=== PATIENT | male | born 1990 | race Caucasian/White ===

== ENCOUNTER 2016-09-22 08:45 | Inpatient (IN) | payer OTHER ==
[~2016-09-22] VITALS: Ht 188 cm; Wt 110.3 kg
[2016-09-22] VITALS (8 sets, daily range): BP systolic 124; BP diastolic 66; PULSE 80–100; RESP 18; TEMP 98.2; O2SAT 96–99
[2016-09-22] MEDS ORDERED: MORPHINE SULFATE 8 MG/ML INJ ONE (08:54)
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
[2016-09-22 09:10] LABS: AUTOMATED NEUTROPHIL # 12.9 TH/MM3 (1.8-7.7); BASOPHIL # 0.1 TH/MM3 (0-0.2); BASOPHIL % 0.7 % (0.0-2.0); EOSINOPHIL % 0.2 % (0.0-4.0); HEMATOCRIT 44.1 % (39.0-51.0); LYMPH % 27.9 % (9.0-44.0); LYMPHOCYTE # 5.3 TH/MM3 (1.0-4.8); MEAN CELL VOLUME 83.3 FL (80.0-100.0); MEAN CORPUSCULAR HEMOGLOBIN 27.7 PG (27.0-34.0); MEAN CORPUSCULAR HGB CONC 33.2 % (32.0-36.0); MONO % 3.6 % (0.0-8.0); NEUT % 67.6 % (16.0-70.0); PLATELET COUNT 252 TH/MM3 (150-450); RED BLOOD COUNT 5.29 MIL/MM3 (4.50-5.90); RED CELL DISTRIBUTION WIDTH 14.1 % (11.6-17.2); WHITE BLOOD COUNT 19.1 TH/MM3 (4.0-11.0)
[2016-09-22 09:11] LABS: HEMO FLAGS AUTO DIFF
[2016-09-22] MEDS ORDERED: IOHEXOL 350 MG/ML 10 ML VIAL (for RAD DIAG) IV ONE (09:18)
[2016-09-22 09:20] LABS: I-STAT POTASSIUM 4.1 MMOL/L (3.5-4.9); PROTHROMBIN TIME - PATIENT 11.6 SEC (9.8-11.6)
[2016-09-22] MEDS ORDERED: MAGNESIUM SULFATE INJ 2 GM in SODIUM CHLORIDE 0.9% INJ 96 ML IV PRN (09:30)
[2016-09-22] MEDS ORDERED: SODIUM PHOSPHATE INJ 30 MMOL in SODIUM CHLOR 0.9% 250 ML INJ 240 ML IV PRN (09:30)
[2016-09-22] MEDS ORDERED: POTASSIUM CHLOR 40 MEQ PREMIX 100 ML IV PRN ×2 (09:30)
[2016-09-22] MEDS ORDERED: POTASSIUM PHOSPHATE MONOBASIC 500 MG TAB PO/TUBE PRN (09:30)
[2016-09-22] MEDS ORDERED: DEXTROSE 50% IN WATER 50 ML VIAL(D50) IV PUSH PRN (09:30)
[2016-09-22] MEDS ORDERED: POTASSIUM PHOSPHATE INJ 30 MMOL in SODIUM CHLOR 0.9% 250 ML INJ 250 ML IV PRN (09:30)
[2016-09-22] MEDS ORDERED: MAGNESIUM OXIDE 400 MG TAB PO PRN (09:30)
[2016-09-22] MEDS ORDERED: POTASSIUM PHOSPHATE MONOBASIC 500 MG TAB PO PRN (09:30)
[2016-09-22] MEDS ORDERED: MAGNESIUM SULFATE INJ 4 GM in SODIUM CHLORIDE 0.9% INJ 92 ML IV PRN (09:30)
[2016-09-22] MEDS ORDERED: POTASSIUM CHLOR 20 MEQ PREMIX 100 ML IV PRN ×2 (09:30)
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
[2016-09-22 09:42] LABS: MYELOCYTES 1 % (0-0); NEUTROPHIL # MANUAL DIFF 12.4 TH/MM3 (1.8-7.7); POLYS (SEG NEUTROPHILS) 64 % (16-70); WBC DIFF SAMPLE 100
[2016-09-22 09:43] LABS: PLATELET ESTIMATE SMEAR NORMAL (NORMAL); PLATELET MORPHOLOGY NORMAL (NORMAL); SCAN/DIFF FINAL DIFF MANUAL
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
[2016-09-22] MEDS ORDERED: SODIUM CHLOR 0.9% 1000 ML INJ 1,000 ML IV SCH (12:00)
[2016-09-22] MEDS: INSULIN NovoLIN REGULAR SUPPLEMENTAL SCALE SQ SCH ×2 (12:00→18:00)
[2016-09-22] MEDS: HYDROmorphone HCL PF 1 MG/ML VIAL IV PRN ×3 (13:30→21:30)
[2016-09-22] MEDS ORDERED: SODIUM CHLORIDE 0.9% FLUSH 10 ML FLUSH IV FLUSH PRN (16:45)
[2016-09-22] MEDS ORDERED: MISCELLANEOUS NURSING INFORMATION XX SCH (16:45)
[2016-09-22] MEDS ORDERED: ONDANSETRON HCL 4 MG/2 ML VIAL IV PRN (16:45)
[2016-09-22] MEDS ORDERED: ENALAPRILAT 1.25 MG/ML VIAL IV PRN (16:45)
[2016-09-22] MEDS ORDERED: CHLORHEXIDINE GLUCONATE 2 % 1 PACK (2 CLOTHS) TOP PRN (16:45)
[2016-09-22] MEDS: SODIUM CHLOR 0.9% 1000 ML INJ 1,000 ML IV SCH (17:00)
[2016-09-22] MEDS: PANTOPRAZOLE SODIUM 40 MG VIAL IVP SCH (17:15)
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
[2016-09-22] MEDS: DOCUSATE SODIUM 100 MG CAP PO SCH ×2 (21:00→21:29)
[2016-09-22] MEDS: MAGNESIUM HYDROXIDE SUSP 30 ML CUP PO SCH ×2 (21:00→21:29)
[2016-09-23] VITALS (7 sets, daily range): BP systolic 118–128; BP diastolic 62–75; PULSE 55–78; RESP 15; TEMP 98.1–98.2; O2SAT 93–95
[2016-09-23] MEDS: HYDROmorphone HCL PF 1 MG/ML VIAL IV PRN ×6 (01:21→22:32)
[2016-09-23] MEDS: SODIUM CHLOR 0.9% 1000 ML INJ 1,000 ML IV SCH ×2 (04:28→15:00)
[2016-09-23] MEDS: CHLORHEXIDINE GLUCONATE 2 % 1 PACK (2 CLOTHS) TOP SCH (04:29)
[2016-09-23] MEDS: INSULIN NovoLIN REGULAR SUPPLEMENTAL SCALE SQ SCH ×4 (06:00→18:00)
[2016-09-23 06:04] LABS: HEMATOCRIT 36.8 % (39.0-51.0); MEAN CELL VOLUME 82.7 FL (80.0-100.0); MEAN CORPUSCULAR HEMOGLOBIN 27.5 PG (27.0-34.0); MEAN CORPUSCULAR HGB CONC 33.2 % (32.0-36.0); PLATELET COUNT 161 TH/MM3 (150-450); RED BLOOD COUNT 4.44 MIL/MM3 (4.50-5.90); RED CELL DISTRIBUTION WIDTH 13.8 % (11.6-17.2); REVIEW FLAG FINAL; WHITE BLOOD COUNT 12.6 TH/MM3 (4.0-11.0)
[2016-09-23 06:31] LABS: BICARBONATE 27.2 MEQ/L (21.0-32.0); POTASSIUM 3.6 MEQ/L (3.5-5.1)
--- NOTE | 2016-09-23 07:39 | PD.ORT.PN ---
Subjective Subjective Remarks Patient appears comfortable. C/o soreness to left shoulder. Family member present at bedside. Objective Vitals Vital Signs Date Time Temp Pulse Resp B/P Pulse Ox O2 Delivery O2 Flow Rate FiO2 09/23/16 06:00 60 09/23/16 06:00 66 09/23/16 04:00 65 09/23/16 02:00 72 09/23/16 00:00 78 09/22/16 22:38 99 Nasal Cannula 2.00 09/22/16 22:00 91 09/22/16 20:00 88 09/22/16 20:00 98.2 88 18 124/66 96 09/22/16 19:00 96 Nasal Cannula 2.00 09/22/16 18:00 92 09/22/16 17:46 14 09/22/16 16:00 97 09/22/16 14:00 94 09/22/16 12:00 100 09/22/16 10:00 80 I/O 09/22/16 09/22/16 09/22/16 09/23/16 09/23/16 09/23/16 07:00 15:00 23:00 07:00 15:00 23:00 Intake Total 174 ml 936 ml 625 ml Output Total 950 ml 650 ml Balance 174 ml -14 ml -25 ml Intake Oral 0 ml 0 ml IV Total 174 ml 936 ml 625 ml Output Urine Total 950 ml 650 ml # Voids 0 # Bowel Movements 0 0 Result Diagram: 09/23/16 0550 09/23/16 0550 Other Results Laboratory Tests Test 09/22/16 08:50 Prothrombin Time 11.6 SEC (9.8-11.6) Prothromb Time International 1.0 RATIO Ratio Imaging Last [address] 09/22/16901 Signed Impressions: Service Date/Time: Thursday, September 22, 2016 09:04 - CONCLUSION: 1. No acute intracranial abnormality seen. 2. Small hypodensity in the left midbrain potentially represent a lacunar infarct or other etiologies such as a cavernous angioma. Eduardo Chand MD Chest CT 09/22/16901 Signed Impressions: Service Date/Time: Thursday, September 22, 2016 09:10 - CONCLUSION: 1. Contusions as described above, worse on the left than the right. 2. Left clavicle fracture mid shaft. 3. Tiny left pneumothorax. Joon Bean MD FACR Cervical Spine CT 09/22/16901 Signed Impressions: Service Date/Time: Thursday, September 22, 2016 09:04 - CONCLUSION: 1. Comminuted, nondisplaced fracture of the dens. No bony retropulsion identified. Romeo Bean MD Abdomen/Pelvis CT 09/22/16901 Signed Impressions: Service Date/Time: Thursday, September 22, 2016 09:10 - CONCLUSION: 1. There is no evidence for a solid organ injury. 2. Small corner fracture anterior superior right hand corner of L3. Lumbar spine reconstructions are pending. Joon Bean MD FACR Pelvis X-Ray 09/22/16848 Signed Impressions: Service Date/Time: Thursday, September 22, 2016 08:59 - CONCLUSION: No definite acute abnormality is seen. Eduardo Chand MD Chest X-Ray 09/22/16848 Signed Impressions: Service Date/Time: Thursday, September 22, 2016 08:59 - CONCLUSION: Suspected area of consolidation, contusion or atelectasis at the lateral left mid and lower lung. Eduardo Chand MD Objective Remarks Left clavicle skin intact small area of ecchymosis and swelling noted 2+ radial pulses +sensation good movement of digits good tribal judge strength sling in place Assessment & Plan Problem List: (1) Fracture, clavicle closed, shaft Plan: X-rays were reviewed and the case was discussed with nurse practitioner Tia. Recommend proceeding with nonoperative fracture care. We will continue to follow patient. Ultimately he will follow up in the office as outpatient. Assessment and Plan Pain management Continue using sling. Apply ice Non-operative management at this time. Monitor Alvarez Weber Sep 23, 2016 07:39
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
[2016-09-23] MEDS: DOCUSATE SODIUM 100 MG CAP PO SCH ×2 (09:00→21:02)
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
--- NOTE | 2016-09-23 09:47 | RADRPT ---
EXAM DATE/TIME: 09/23/2016 09:28 [facility] COMPARISON: CT THORAX W CONTRAST, September 22, 2016, 9:10. PELVIS AP ONLY, September 22, 2016, 8:59. INDICATIONS : Follow up rib fracture and pneumothorax. MEDICAL HISTORY : rib fractures SURGICAL HISTORY : ENCOUNTER: Initial ACUITY: 1 day PAIN SCORE: 0/10 LOCATION: Bilateral chest FINDINGS: The heart is normal in size. There is a small left basilar effusion. There are atelectatic changes in the left lower lobe. There is minimal fluid tracking along the left lung apex. No significant pneumo thorax is identified. No definite rib fracture is identified. CONCLUSION: 1. Left basilar effusion and atelectasis. There is a small amount of little on the left lung apex as well. No significant pneumothorax is seen. Romeo Bean MD on September 23, 2016 at 9:42 Board Certified Radiologist. This report was verified electronically.
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
[2016-09-23] MEDS: PANTOPRAZOLE SODIUM 40 MG VIAL IVP SCH (16:28)
[2016-09-23] MEDS: MAGNESIUM HYDROXIDE SUSP 30 ML CUP PO SCH (21:02)
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
[2016-09-24] VITALS (12 sets, daily range): BP systolic 117–142; BP diastolic 55–82; PULSE 51–103; RESP 12–27; TEMP 97.8–100.1; O2SAT 91–100
[2016-09-24] MEDS: HYDROmorphone HCL PF 1 MG/ML VIAL IV PRN ×3 (03:47→11:53)
[2016-09-24] MEDS: CHLORHEXIDINE GLUCONATE 2 % 1 PACK (2 CLOTHS) TOP SCH (04:00)
[2016-09-24 04:18] LABS: AUTOMATED NEUTROPHIL # 9.2 TH/MM3 (1.8-7.7); BASOPHIL % 0.2 % (0.0-2.0); EOSINOPHIL # 0.2 TH/MM3 (0-0.4); EOSINOPHIL % 1.3 % (0.0-4.0); HEMATOCRIT 35.6 % (39.0-51.0); HEMO FLAGS DIFF FINAL; LYMPH % 11.6 % (9.0-44.0); LYMPHOCYTE # 1.3 TH/MM3 (1.0-4.8); MEAN CELL VOLUME 82.1 FL (80.0-100.0); MEAN CORPUSCULAR HEMOGLOBIN 27.7 PG (27.0-34.0); MEAN CORPUSCULAR HGB CONC 33.8 % (32.0-36.0); MONO % 6.8 % (0.0-8.0); NEUT % 80.1 % (16.0-70.0); PLATELET COUNT 154 TH/MM3 (150-450); RED BLOOD COUNT 4.33 MIL/MM3 (4.50-5.90); RED CELL DISTRIBUTION WIDTH 13.6 % (11.6-17.2); WHITE BLOOD COUNT 11.5 TH/MM3 (4.0-11.0)
[2016-09-24 04:33] LABS: ANION GAP 6 MEQ/L (5-15); AST (GOT) 83 U/L (15-37); BICARBONATE 28.6 MEQ/L (21.0-32.0); BLOOD UREA NITROGEN 8 MG/DL (7-18); CHLORIDE 103 MEQ/L (98-107); MAGNESIUM 2.2 MG/DL (1.5-2.5); POTASSIUM 3.8 MEQ/L (3.5-5.1); SODIUM (NA) 138 MEQ/L (136-145)
[2016-09-24 04:36] LABS: ALKALINE PHOSPHATASE 54 U/L (45-117); ALT (GPT) 218 U/L (12-78); GLOMERULAR FILTRATION RATE 145 ML/MIN (>89); TOTAL BILIRUBIN ADULT 0.8 MG/DL (0.2-1.0)
--- NOTE | 2016-09-24 05:41 | RADRPT ---
EXAM DATE/TIME: 09/24/2016 04:07 [facility] COMPARISON: CHEST SINGLE AP, September 23, 2016, 9:28. INDICATIONS : Shortness of breath. MEDICAL HISTORY : None. SURGICAL HISTORY : None. ENCOUNTER: Subsequent ACUITY: 3 days PAIN SCORE: Non-responsive. LOCATION: Bilateral chest FINDINGS: Mild basilar consolidation again noted, mainly on the left. No perceptible pleural effusion or pneumo thorax. Heart size stable, within normal limits. CONCLUSION: No significant change mild left greater than right basilar consolidation. Eduardo Dave MD on September 24, 2016 at 5:38 Board Certified Radiologist. This report was verified electronically.
[2016-09-24] MEDS: INSULIN NovoLIN REGULAR SUPPLEMENTAL SCALE SQ SCH ×4 (06:00→18:00)
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
[2016-09-24] MEDS: DOCUSATE SODIUM 100 MG CAP PO SCH ×2 (08:09→20:14)
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
[2016-09-24] MEDS: SODIUM CHLOR 0.9% 1000 ML INJ 1,000 ML IV SCH (11:55)
[2016-09-24] MEDS ORDERED: LIDOCAINE 1%/EPINEPHrine 1:100,000 SOLN 50 ML VIAL INFIL SCH (12:15)
[2016-09-24] MEDS ORDERED: MORPHINE SULFATE 8 MG/ML INJ IV PUSH SCH (12:15)
[2016-09-24] MEDS ORDERED: MIDAZOLAM HCL 5 MG/5 ML VIAL IV SCH (12:30)
[2016-09-24] MEDS ORDERED: ACETAMINOPHEN 325 MG TAB PO PRN (15:30)
[2016-09-24] MEDS: BENZOCAINE 6 MG/MENTHOL 10 MG LOZENGE BUCCAL PRN (17:18)
[2016-09-24] MEDS: KETOROLAC TROMETHAMINE 30 MG/ML (IVP) VIAL IV PUSH SCH (17:18)
--- NOTE | 2016-09-24 18:38 | RADRPT ---
EXAM DATE/TIME: 09/24/2016 17:58 [facility] COMPARISON: CT THORAX W CONTRAST, September 22, 2016, 9:10. CHEST SINGLE AP, September 24, 2016, 4:07. INDICATIONS : Shortness of breath MEDICAL HISTORY : None. SURGICAL HISTORY : None. ENCOUNTER: Initial ACUITY: 1 day PAIN SCORE: 0/10 LOCATION: Bilateral chest FINDINGS: Portable AP view of the chest demonstrates a normal-sized cardiac silhouette. There is left basilar p leural-parenchymal opacity obscuring the left hemidiaphragm. There is also opacity at the right base obscuring the right hemidiaphragm. No pneumothorax is visualized. Bones and soft tissues demonstrate no acute finding. CONCLUSION: Increased bibasilar opacities likely representing a atelectasis and/or consolidation. Small pleural e ffusion may also be present. Eduardo Alcantara MD on September 24, 2016 at 18:34 Board Certified Radiologist. This report was verified electronically.
[2016-09-24] MEDS ORDERED: MELATONIN 5 MG TAB PO ONE (19:30)
[2016-09-24] MEDS: MAGNESIUM HYDROXIDE SUSP 30 ML CUP PO SCH (20:14)
[2016-09-24] MEDS: MELATONIN 5 MG TAB PO SCH (21:09)
[2016-09-24] MEDS: oxyCODONE/ACETAMINOPHEN 5 MG/325 MG TAB PO PRN (22:37)
[2016-09-24] MEDS ORDERED: OLANZapine ODT 5 MG TAB PO PRN (23:00)
[2016-09-25] VITALS (14 sets, daily range): BP systolic 119–132; BP diastolic 59–65; PULSE 78–105; RESP 19–31; TEMP 97.6–98.6; O2SAT 91–96
[2016-09-25] MEDS: KETOROLAC TROMETHAMINE 30 MG/ML (IVP) VIAL IV PUSH SCH ×4 (00:42→17:45)
--- NOTE | 2016-09-25 03:26 | RADRPT ---
EXAM DATE/TIME: 09/25/2016 02:29 [facility] COMPARISON: CHEST SINGLE AP, September 24, 2016, 17:58. INDICATIONS : Shortness of breath MEDICAL HISTORY : None. SURGICAL HISTORY : None. ENCOUNTER: Subsequent ACUITY: 4 - 6 days PAIN SCORE: 0/10 LOCATION: Bilateral chest FINDINGS: Mild bilateral basilar consolidation and small effusions again noted, not significantly changed. No p neumothorax. Heart size stable, upper limits of normal. CONCLUSION: No significant change. Mild consolidation and effusion of both bases again noted. Eduardo Dave MD on September 25, 2016 at 3:24 Board Certified Radiologist. This report was verified electronically.
[2016-09-25] MEDS: CHLORHEXIDINE GLUCONATE 2 % 1 PACK (2 CLOTHS) TOP SCH (03:54)
[2016-09-25] MEDS: BENZOCAINE 6 MG/MENTHOL 10 MG LOZENGE BUCCAL PRN ×2 (03:54→11:31)
[2016-09-25 04:19] LABS: AUTOMATED NEUTROPHIL # 10.3 TH/MM3 (1.8-7.7); HEMATOCRIT 36.7 % (39.0-51.0); HEMO FLAGS DIFF FINAL; LYMPH % 7.3 % (9.0-44.0); LYMPHOCYTE # 0.9 TH/MM3 (1.0-4.8); MEAN CELL VOLUME 81.4 FL (80.0-100.0); MEAN CORPUSCULAR HEMOGLOBIN 27.8 PG (27.0-34.0); MEAN CORPUSCULAR HGB CONC 34.1 % (32.0-36.0); MONO % 5.6 % (0.0-8.0); NEUT % 87.1 % (16.0-70.0); PLATELET COUNT 151 TH/MM3 (150-450); RED BLOOD COUNT 4.51 MIL/MM3 (4.50-5.90); RED CELL DISTRIBUTION WIDTH 13.5 % (11.6-17.2); WHITE BLOOD COUNT 11.8 TH/MM3 (4.0-11.0)
[2016-09-25 04:27] LABS: ALT (GPT) 142 U/L (12-78); ANION GAP 8 MEQ/L (5-15); AST (GOT) 44 U/L (15-37); BICARBONATE 27.5 MEQ/L (21.0-32.0); BLOOD UREA NITROGEN 10 MG/DL (7-18); CHLORIDE 103 MEQ/L (98-107); GLOMERULAR FILTRATION RATE 131 ML/MIN (>89); POTASSIUM 3.8 MEQ/L (3.5-5.1); SODIUM (NA) 138 MEQ/L (136-145)
[2016-09-25 04:29] LABS: ALKALINE PHOSPHATASE 51 U/L (45-117); TOTAL BILIRUBIN ADULT 1.4 MG/DL (0.2-1.0)
[2016-09-25] MEDS: DOCUSATE SODIUM 100 MG CAP PO SCH ×2 (07:37→21:02)
[2016-09-25] MEDS: SODIUM CHLOR 0.9% 1000 ML INJ 1,000 ML IV SCH (07:39)
[2016-09-25] MEDS ORDERED: MIDAZOLAM HCL 5 MG/ML VIAL (1 ML) ONE (08:39)
[2016-09-25] MEDS ORDERED: PROPOFOL 500 MG/50 ML INJ 50 ML ONE (08:39)
[2016-09-25] MEDS ORDERED: SUCCINYLCHOLINE CHLORIDE 200 MG/10 ML VIAL ONE (08:40)
[2016-09-25] MEDS ORDERED: LIDOCAINE 2%/EPINEPHrine 1:100,000 30ML MDV ONE (08:52)
[2016-09-25] MEDS ORDERED: KETAMINE HCL 500 MG/10 ML VIAL IV SCH (09:00)
--- NOTE | 2016-09-25 09:41 | RADRPT ---
EXAM DATE/TIME: 09/25/2016 09:09 [facility] COMPARISON: No previous studies available for comparison. INDICATIONS : Halo placement. MEDICAL HISTORY : None. SURGICAL HISTORY : None. ENCOUNTER: Initial ACUITY: 3 days PAIN SCORE: Non-responsive. LOCATION: Bilateral cervical spine FINDINGS: A single lateral view of the cervical spine was performed. Halo has been placed. Dens fracture remain s normally aligned. No significant prevertebral soft tissue swelling. Normal alignment of the remaind er of the cervical spine to the level of C6-7. CONCLUSION: 1. Normal alignment of the dens fracture on the lateral view. Halo device has been placed. Syed Hogue MD on September 25, 2016 at 9:36 Board Certified Radiologist. This report was verified electronically.
--- NOTE | 2016-09-25 09:47 | PD.OP ---
Operative Report Date of Surgery: Sep 25, 2016 Preoperative Diagnosis: Cervical C2 type II odontoid fracture Postoperative Diagnosis: Same Procedure: Halo placement Anesthesia: Local with sedation by Elba Rangel Surgeon: Chan Nichols M.D. Bandoleer Packer(s): [employer] Operation and Findings: Informed consent was obtained from the patient and his parents. Procedure undertaken at the bedside in the surgical intensive care unit with oxygen saturation and hemodynamic monitoring. Intravenous sedation administered as per rack washer. Neck was maintained in a [place] J collar during the placement of the halo. A bifrontal and occipital regions were then shaved and prepped with Betadine solution and infiltrated with 1% lidocaine with epinephrine solution avoiding the laceration sites. The halo ring was in place with 2 frontal and occipital pins tightened to 8 pounds of torque pressure. The halo vest was then also placed in the ring connectors of the vest with rods and locked in place at 30 pounds of pressure at each connection maintaining a neutral neck position. A lateral cervical spine x-ray was obtained which confirmed maintained cervical spinal alignment. Patient tolerated the procedure well without any complications or blood loss. Chan Nichols MD Sep 25, 2016 09:47
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
[2016-09-25] MEDS: ENOXAPARIN SODIUM 40 MG/0.4 ML SYRINGE SQ SCH (10:40)
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
--- NOTE | 2016-09-25 20:06 | PD.PROCEDR ---
Procedure Note Procedure Moderate Sedation Diagnosis: C1 fracture Indications: High cervical fracture requiring halo immobilization Consent: consent was obtained Planned Procedure: Halo immobilization placement Airway Exam: Oropharyngeal class II airway, normal thyroid mental distance. Normal mouth opening. No loose, missing, false, chipped teeth. Severely restricted neck flexion, extension secondary to c-collar and neck fracture. Sedation plan: This patient is at high risk for both hypoxia as well as neurologic compromise due to elective intubation. The plan will be conscious sedation with local anesthetic as adjuvant anesthesia. As backup, fiberoptic bronchoscopy, video laryngoscope, LMA, and oral airway. Sedation plan with Versed and ketamine IV. Total sedation time: 21 minutes Please see sedation record scanned into medical record. The patient's past medical history, allergies, medications, and prior airway records were reviewed. A time-out procedure was performed. The patient underwent the above planned procedure and tolerated it well. They remained hemodynamically stable throughout. At the conclusion of the case, the patient was back to neurologic baseline and their care was turned over to the bedside RN. No immediate complications noted. I personally performed the sedation. Ras Arreola MD Sep 25, 2016 20:06
[2016-09-25] MEDS: oxyCODONE/ACETAMINOPHEN 5 MG/325 MG TAB PO PRN (21:02)
[2016-09-25] MEDS: MELATONIN 5 MG TAB PO SCH (21:02)
[2016-09-25] MEDS: MAGNESIUM HYDROXIDE SUSP 30 ML CUP PO SCH (21:02)
[2016-09-26] VITALS (9 sets, daily range): BP systolic 121–142; BP diastolic 60–68; PULSE 65–99; RESP 15–17; TEMP 95.5–98; O2SAT 92–96
[2016-09-26] MEDS: KETOROLAC TROMETHAMINE 30 MG/ML (IVP) VIAL IV PUSH SCH ×5 (03:29→23:35)
[2016-09-26] MEDS: CHLORHEXIDINE GLUCONATE 2 % 1 PACK (2 CLOTHS) TOP SCH (04:00)
--- NOTE | 2016-09-26 06:19 | RADRPT ---
EXAM DATE/TIME: 09/26/2016 04:01 [facility] COMPARISON: CHEST SINGLE AP, September 25, 2016, 2:29. INDICATIONS : Shortness of breath. MEDICAL HISTORY : None. SURGICAL HISTORY : None. ENCOUNTER: Subsequent ACUITY: 4 - 6 days PAIN SCORE: Non-responsive. LOCATION: chest FINDINGS: A single view of the chest demonstrates diminished lung volumes and bibasilar densities. Halo device noted. Osseous structures are intact. CONCLUSION: Worsening bibasilar densities likely atelectasis. Roberto Hines MD on September 26, 2016 at 6:16 Board Certified Radiologist. This report was verified electronically.
[2016-09-26] MEDS: MELATONIN 5 MG TAB PO SCH (07:18)
[2016-09-26 07:33] LABS: AUTOMATED NEUTROPHIL # 9.8 TH/MM3 (1.8-7.7); BASOPHIL % 0.2 % (0.0-2.0); EOSINOPHIL # 0.4 TH/MM3 (0-0.4); EOSINOPHIL % 2.9 % (0.0-4.0); HEMATOCRIT 34.4 % (39.0-51.0); HEMO FLAGS DIFF FINAL; LYMPH % 12.6 % (9.0-44.0); LYMPHOCYTE # 1.6 TH/MM3 (1.0-4.8); MEAN CELL VOLUME 82.2 FL (80.0-100.0); MEAN CORPUSCULAR HEMOGLOBIN 28.1 PG (27.0-34.0); MEAN CORPUSCULAR HGB CONC 34.2 % (32.0-36.0); MONO % 6.8 % (0.0-8.0); NEUT % 77.5 % (16.0-70.0); PLATELET COUNT 187 TH/MM3 (150-450); RED BLOOD COUNT 4.19 MIL/MM3 (4.50-5.90); RED CELL DISTRIBUTION WIDTH 13.4 % (11.6-17.2); WHITE BLOOD COUNT 12.7 TH/MM3 (4.0-11.0)
[2016-09-26 07:42] LABS: ALT (GPT) 91 U/L (12-78); ANION GAP 7 MEQ/L (5-15); AST (GOT) 27 U/L (15-37); BICARBONATE 29.2 MEQ/L (21.0-32.0); BLOOD UREA NITROGEN 13 MG/DL (7-18); CHLORIDE 106 MEQ/L (98-107); GLOMERULAR FILTRATION RATE 122 ML/MIN (>89); MAGNESIUM 2.4 MG/DL (1.5-2.5); POTASSIUM 3.7 MEQ/L (3.5-5.1); SODIUM (NA) 142 MEQ/L (136-145)
[2016-09-26 07:44] LABS: ALKALINE PHOSPHATASE 54 U/L (45-117); TOTAL BILIRUBIN ADULT 0.9 MG/DL (0.2-1.0)
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
[2016-09-26] MEDS: DOCUSATE SODIUM 100 MG CAP PO SCH ×2 (08:41→19:56)
[2016-09-26] MEDS: ENOXAPARIN SODIUM 40 MG/0.4 ML SYRINGE SQ SCH (08:41)
[2016-09-26] MEDS ORDERED: LACTULOSE SYRUP 20 GM/30 ML CUP PO ONE (09:00)
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
[2016-09-26] MEDS ORDERED: DOCU1CAP39 PO (12:31)
[2016-09-26] MEDS ORDERED: MAGN400S PO (12:31)
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
[2016-09-26] MEDS: MAGNESIUM HYDROXIDE SUSP 30 ML CUP PO SCH (19:56)
[2016-09-26] MEDS: oxyCODONE/ACETAMINOPHEN 5 MG/325 MG TAB PO PRN (23:38)
[2016-09-27] VITALS (8 sets, daily range): BP systolic 127–140; BP diastolic 64–74; PULSE 70–88; RESP 17–19; TEMP 96.7–98.4; O2SAT 92–97
[2016-09-27] MEDS: KETOROLAC TROMETHAMINE 30 MG/ML (IVP) VIAL IV PUSH SCH ×2 (05:27→12:59)
[2016-09-27 06:34] LABS: AUTOMATED NEUTROPHIL # 8.1 TH/MM3 (1.8-7.7); BASOPHIL # 0.1 TH/MM3 (0-0.2); BASOPHIL % 0.5 % (0.0-2.0); EOSINOPHIL # 0.6 TH/MM3 (0-0.4); EOSINOPHIL % 4.9 % (0.0-4.0); HEMO FLAGS DIFF FINAL; LYMPH % 16.5 % (9.0-44.0); LYMPHOCYTE # 1.9 TH/MM3 (1.0-4.8); MEAN CELL VOLUME 82.3 FL (80.0-100.0); MEAN CORPUSCULAR HEMOGLOBIN 27.9 PG (27.0-34.0); MEAN CORPUSCULAR HGB CONC 33.9 % (32.0-36.0); MONO % 8.6 % (0.0-8.0); NEUT % 69.5 % (16.0-70.0); PLATELET COUNT 217 TH/MM3 (150-450); RED BLOOD COUNT 4.13 MIL/MM3 (4.50-5.90); RED CELL DISTRIBUTION WIDTH 13.6 % (11.6-17.2); WHITE BLOOD COUNT 11.6 TH/MM3 (4.0-11.0)
[2016-09-27 07:00] LABS: ALKALINE PHOSPHATASE 60 U/L (45-117); BLOOD UREA NITROGEN 13 MG/DL (7-18); TOTAL BILIRUBIN ADULT 0.8 MG/DL (0.2-1.0)
[2016-09-27 07:09] LABS: ALT (GPT) 75 U/L (12-78); ANION GAP 5 MEQ/L (5-15); AST (GOT) 31 U/L (15-37); BICARBONATE 31.8 MEQ/L (21.0-32.0); CHLORIDE 106 MEQ/L (98-107); GLOMERULAR FILTRATION RATE 109 ML/MIN (>89); MAGNESIUM 2.4 MG/DL (1.5-2.5); SODIUM (NA) 143 MEQ/L (136-145)
[2016-09-27] MEDS: LACTULOSE SYRUP 20 GM/30 ML CUP PO SCH (09:00)
[2016-09-27] MEDS: ENOXAPARIN SODIUM 40 MG/0.4 ML SYRINGE SQ SCH (09:00)
[2016-09-27] MEDS: DOCUSATE SODIUM 100 MG CAP PO SCH ×2 (09:00→20:34)
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
[2016-09-27] MEDS ORDERED: OXYC1TAB63 PO (11:28)
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
[2016-09-27] MEDS ORDERED: WALKER WHEELS/F1 MIS (15:38)
[2016-09-27] MEDS: oxyCODONE/ACETAMINOPHEN 5 MG/325 MG TAB PO PRN (20:34)
[2016-09-27] MEDS: MAGNESIUM HYDROXIDE SUSP 30 ML CUP PO SCH (20:34)
[2016-09-27] MEDS: MELATONIN 5 MG TAB PO SCH (20:35)
[2016-09-28] MEDS: oxyCODONE/ACETAMINOPHEN 5 MG/325 MG TAB PO PRN ×2 (00:31→15:44)
[2016-09-28] MEDS: BENZOCAINE 6 MG/MENTHOL 10 MG LOZENGE BUCCAL PRN (02:58)
[2016-09-28 04:28] VITALS: BP 136/74; PULSE 67; RESP 18; TEMP 96.8; O2SAT 93
[2016-09-28 07:41] LABS: MEAN CELL VOLUME 82.5 FL (80.0-100.0); MEAN CORPUSCULAR HEMOGLOBIN 27.2 PG (27.0-34.0); PLATELET COUNT 250 TH/MM3 (150-450); RED BLOOD COUNT 4.25 MIL/MM3 (4.50-5.90); RED CELL DISTRIBUTION WIDTH 13.8 % (11.6-17.2); REVIEW FLAG FINAL; WHITE BLOOD COUNT 11.6 TH/MM3 (4.0-11.0)
[2016-09-28 08:00] VITALS: BP 126/75; PULSE 65; RESP 18; TEMP 96.6; O2SAT 93
[2016-09-28 08:08] LABS: BICARBONATE 28.5 MEQ/L (21.0-32.0); POTASSIUM 3.6 MEQ/L (3.5-5.1)
[2016-09-28] MEDS ORDERED: WALKER WHEELS/F1 MIS (08:32)
[2016-09-28] MEDS: LACTULOSE SYRUP 20 GM/30 ML CUP PO SCH (09:53)
[2016-09-28] MEDS: DOCUSATE SODIUM 100 MG CAP PO SCH (09:53)
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
[2016-09-28] MEDS: ENOXAPARIN SODIUM 40 MG/0.4 ML SYRINGE SQ SCH (11:01)
[2016-09-28 11:14] VITALS: O2SAT 97
[2016-09-28 11:39] VITALS: BP 133/71; PULSE 76; RESP 18; TEMP 98.4; O2SAT 94
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
== END 2016-09-28 16:49 | disposition home or self-care (01) | DRG 551 ==
LOC: NEPI 08:45 → EDBD 09:10 → NEDA 09:10 → N03B 09:31 → N06B 09-26 11:20
PROVIDERS: ADMIT Surgery; ATTEND Surgery
PROC: 2W60X0Z Traction of Head using Traction Apparatus (ICD-10-PCS; principal; 2016-09-25)
DX: S12.120A Other displaced dens fracture, initial encounter for closed fracture (principal); J96.01 Acute respiratory failure with hypoxia; J69.0 Pneumonitis due to inhalation of food and vomit; S27.322A Contusion of lung, bilateral, initial encounter; D62 Acute posthemorrhagic anemia; J98.11 Atelectasis; S32.049A Unspecified fracture of fourth lumbar vertebra, initial encounter for closed fracture; S32.059A Unspecified fracture of fifth lumbar vertebra, initial encounter for closed fracture; E86.1 Hypovolemia; S42.022A Displaced fracture of shaft of left clavicle, initial encounter for closed fracture; V43.62XA Car passenger injured in collision with other type car in traffic accident, initial encounter; Y92.410 Unspecified street and highway as the place of occurrence of the external cause; D18.00 Hemangioma unspecified site; G47.00 Insomnia, unspecified; F43.22 Adjustment disorder with anxiety; R40.2412 Glasgow coma scale score 13-15, at arrival to emergency department
CPT/HCPCS: 70450; 71010; 71260; 72020; 72125; 72131; 72170; 74177; 80048; 80053; 82435; 82565; 82947; 82948; 83735; 84132; 84295; 84520; 85007; 85025; 85027; 85610; 85730; 86850; 86900; 86901; 87641; 94002; 94150; 94640; 94667; C9113; J0330; J1170; J1650; J1885; J2250; J2270; J2405; J7030; L0150; L0172; L0627; L0810; Q9967